=== PATIENT | male | born 1990 | race Caucasian/White ===

== ENCOUNTER 2023-08-01 23:10 | Emergency (ER) | payer OTHER, SELFPAY ==
[2023-08-01 23:16] VITALS: BP 122/66; PULSE 80; RESP 20; TEMP 36.8; O2SAT 99; BMI 18.8
--- NOTE | 2023-08-01 23:29 | ED.GENADULT ---
HPI - General Adult General Date Seen: 08/01/23 Chief complaint: Abdominal Pain Stated complaint: bloating, shortness of breath Time Seen by Provider: 08/01/23 23:28 History of Present Illness HPI narrative: This is a 32-year-old male with a history of liver transplant (done at age 7. He follows with the [facility] transplant [facility] for his ongoing care. His regular doctor is Dr. Milligan at the [facility]. He normally takes Prograf for rejection control. No other regular medications. When asked how his liver is doing he indicates that they have been watching his labs for the past year or 2. He does not recall any previous history of ascites or known recollection of spontaneous bacterial peritonitis. He is here in the ER in [facility] because he is visiting his girlfriend who lives here in [facility]. He has been having symptoms for about 5 days of gradually worsening abdominal bloating and distention. It has gotten to the point [facility] where he feels little bit short of breath because he can not keep but deep breath in. No other symptoms. No chest pain. No cough. No fever. No vomiting or diarrhea. He has not had any swelling in his legs. He has not yet been in contact with his liver specialist about the swelling in his abdomen. Related Data Home Medications Medication Instructions Recorded Confirmed tacrolimus 1 mg capsule, 2 mg PO Q12H 08/01/23 08/01/23 immediate-release (Prograf) Allergies Allergy/AdvReac Type Severity Reaction Status Date / Time No Known Drug Allergies Allergy Verified 08/01/23 23:16 [facility] Surgical History (Updated 08/01/23 @ 23:19 by Latricia Chavez RN) Liver transplant recipient ?Z94.4 - Liver transplant status (ICD-10) Social History Do you use any of these nicotine containing products: Vaping Products How often do you have a drink containing alcohol: never AUDIT-C Alcohol total score: 0 Non-prescribed substance use: marijuana (any form) service: No Exam Narrative: Exam Narrative: Constitutional: Appears well-developed and well-nourished. He is very slender arms and legs. Skin looks perhaps a bit jaundiced or anemic. Alert. Conversant. No confusion. Non toxic. HENT: Head: Atraumatic. Nose: Nose normal. Mouth/Throat: Oral mucosa is clear and moist. no trismus. Pharynx normal. Tonsils symmetric. No tonsillar enlargement, erythema, or exudate. Eyes: Conjunctivae normal. EOM normal. Pupils equal, round, and reactive to light. No scleral icterus. Neck: Normal range of motion. Neck supple. No tracheal deviation present. No JVD. Cardiovascular: Normal rate, regular rhythm. No gallop. No friction rub. No murmur heard. Symmetric radial artery pulses Pulmonary/Chest: Effort normal. No stridor. No respiratory distress. No wheezes. No rales. No rhonchi . No tenderness. Abdominal: Soft. Bowel sounds normal. Abdomen is diffusely firm, mildly tender. No guarding or rebound or definite peritoneal signs. Because of firmness in the upper abdomen, unable to really palpate for hepatomegaly or splenomegaly. He has 2 healed linear right upper quadrant incisions as well as multiple other healed abdominal incisions. No umbilical hernia. Dull to percussion. However no definite fluid wave. No CVA tenderness. Musculoskeletal: RUE: Normal range of motion. No tenderness. No deformity LUE: Normal range of motion. No tenderness. No deformity RLE: Normal range of motion. No edema. No tenderness. No deformity LLE: Normal range of motion. No edema. No tenderness. No deformity Neurological: Alert and oriented to person, place, and time. Normal strength. CN II-VII intact. No sensory deficit. GCS eye subscore is 4. GCS verbal subscore is 5. GCS motor subscore is 6. Normal coordination Skin: Skin is warm and dry. No rash noted. No pallor. Normal capillary refill. Psychiatric: Normal mood. Normal affect. Const: Vital Signs, click to edit/add: Vital Signs - 24 hr 08/01/23 23:16 Temperature 98.3 F Pulse Rate [Pulse Oximeter] 80 Respiratory Rate 20 Blood Pressure [Ri t Upper Arm] 122/66 Pulse Oximetry 99 Oxygen Delivery Me thod Room Air Course Vital Signs Vital signs: Initial Vital Signs Temperature 98.3 F 08/01/23 23:16 Temperature Source Temporal Artery Scan 08/01/23 23:16 Pulse Rate 80 08/01/23 23:16 Respiratory Rate 20 08/01/23 23:16 Blood Pressure 122/66 08/01/23 23:16 Blood Pressure Mean 84 08/01/23 23:16 Pulse Oximetry 99 08/01/23 23:16 Oxygen Delivery Method Room Air 08/01/23 23:16 Vital Signs Temperature 98.3 F 08/01/23 23:16 Pulse Rate 80 08/01/23 23:16 Respiratory Rate 20 08/01/23 23:16 Blood Pressure 122/66 08/01/23 23:16 Pulse Oximetry 99 08/01/23 23:16 Oxygen Delivery Method Room Air 08/01/23 23:16 Temperature 98.3 F 08/01/23 23:16 Pulse Rate 80 08/01/23 23:16 Respiratory Rate 20 08/01/23 23:16 Blood Pressure 122/66 08/01/23 23:16 Pulse Oximetry 99 08/01/23 23:16 Oxygen Delivery Method Room Air 08/01/23 23:16 Medical Decision Making MDM Narrative Medical decision making narrative: 32-year-old male with a long history of liver transplant (done at age 7, 25 years ago) presenting to the ER today with tonight for evaluation of 5 days of progressively worsening abdominal bloating and pain. My initial exam is concerning for possible ascites. However there is no definitive fluid wave. I have ordered CT imaging to evaluate for ascites as well as for other causes of abdominal pain such as appendicitis, colitis, diverticulitis, among others. I have also ordered laboratory workup to look at kidney function, LFTs, coags, and blood counts. Patient signed out to my partner, Dr. Crook at shift change-12:30 a.m. on 08/02/2023 Clinical impression: Abdominal pain, possible ascites Lab Data Labs: Lab Results 08/01/23 Range/Units 23:50 WBC 6.74 (4.50-11.00) K/uL RBC 3.79 L (4.30-5.90) m/uL Hgb 12.2 L (13.5-17.5) gm/dL Hct 37.4 (37.0-53.0) % MCV 99 (80-100) fL MCH 32 (26-34) pg MCHC 33 (32-36) gm/dL RDW Coeff of Karthik 17.8 H (11.5-15.5) % Plt Count 204 (140-440) K/uL Neut % (Auto) 74.0 H (42.0-72.0) % Lymph % (Auto) 9.5 L (20-44) % [place] % (Auto) 10.5 (0.0-11.0) % Eos % (Auto) 4.9 (0.0-7.0) % Baso % (Auto) 0.7 (0.0-3.0) % Neut # (Auto) 5.00 (1.7-7.0) K/uL Lymph # (Auto) 0.60 L (0.90-2.90) K/uL [place] # (Auto) 0.70 (0.00-0.90) K/UL Eos # (Auto) 0.33 (0.00-0.50) K/uL Baso # (Auto) 0.05 (0.00-0.30) K/uL Abs Immat Gran (auto) 0.03 (0.00-0.30) K/uL Imm/Tot Granulo (auto) 0.4 % Discharge Plan Discharge Prescriptions: No Action tacrolimus [Prograf] 1 mg capsule 2 mg PO Q12H Follow Up/Referrals: Provider,Not a Local [Primary Care Provider] -
--- NOTE | 2023-08-01 23:46 | CRLHL7_ITS ---
For Patients: As a result of the Century Cures Act, medical imaging exams and procedure reports are released immediately into your electronic medical record. You may view this report before your referring provider. If you have questions, please contact your health care provider. INDICATION: Abdominal bloating. Shortness of breath. History of liver transplant. CT ABDOMEN AND PELVIS WITH CONTRAST TECHNIQUE: Multidetector CT imaging was performed through the abdomen and pelvis following intravenous contrast administration using 66 mL Isovue 370. Coronal and sagittal reconstructions were generated. COMPARISON: None. FINDINGS: Lower chest: Mild basilar lung atelectasis, greatest on the right. Liver and bile ducts: Surgical clips along the superior aspect of the intrahepatic IVC may reflect anastomosis from prior liver transplantation. The gallbladder is absent and there is mild intrahepatic pneumobilia which may relate to prior choledochoejunostomy. No significant biliary dilation. Diffusely nodular liver contour consistent with cirrhosis. No focal liver mass identified. Pancreas: Unremarkable. Spleen: Mild splenomegaly measuring 16.4 centimeters in length. Adrenals: No nodules or masses. Kidneys, ureters, and urinary bladder: Small cyst at the upper pole of the right kidney. No right hydronephrosis. Moderate to severe atrophy of the left kidney. No bladder mass or definite wall thickening. Gastrointestinal tract: Diffuse mild bowel wall thickening. No evidence of bowel obstruction. The appendix is not clearly identified. Vascular structures: Normal caliber abdominal aorta. Patent portal vein. Prominent vessels in left upper quadrant likely representing portosystemic collaterals related to portal venous hypertension. Peritoneum: Moderate to large amount of ascites throughout the abdomen and pelvis. No definite loculated collections. No free air identified. Lymph nodes: No pathologically enlarged nodes identified. Reproductive organs: No pelvic masses. Bones: Degenerative disc disease at L5-S1. IMPRESSION: 1. Findings consistent with previous liver transplantation. The transplanted liver shows evidence of cirrhosis with associated splenomegaly and a moderate to large amount of ascites throughout the abdomen and pelvis. 2. Nonspecific diffuse mild bowel wall thickening, possibly related to hypoalbuminemia. AMRIT REECE MD [facility] Dictated by Dewayne Reece MD @ 08/02/2023 1:12:13 AM Please note that all CT scans at this facility use dose modulation, iterative reconstruction, and/or weight-based dosing when appropriate to reduce radiation dose to as low as reasonably achievable. Dictated by: Dewayne Reece MD @ 08/02/2023 01:12:37 (Electronically Signed)
[2023-08-02 00:05] LABS: Basophils Absolute Auto 0.05 K/uL (0.00-0.30); Basophils Percent Auto 0.7 % (0.0-3.0); Eosinophils Absolute Auto 0.33 K/uL (0.00-0.50); Eosinophils Percent Auto 4.9 % (0.0-7.0); Hematocrit 37.4 % (37.0-53.0); Hemoglobin* 12.2 gm/dL (13.5-17.5); Immature Granulocytes Abs Auto 0.03 K/uL (0.00-0.30); Immature Granulocytes Pct Auto 0.4 %; Lymphocytes Percent Auto 9.5 % (20-44); Mean Corpuscular HGB Conc 33 gm/dL (32-36); Mean Corpuscular Hemoglobin 32 pg (26-34); Mean Corpuscular Volume 99 fL (80-100); Monocytes Percent Auto 10.5 % (0.0-11.0); Platelet Count* 204 K/uL (140-440); RDW Coefficient of Variation % 17.8 % (11.5-15.5); Red Blood Count 3.79 m/uL (4.30-5.90); White Blood Count* 6.74 K/uL (4.50-11.00)
[2023-08-02 00:07] LABS: Slide Review Reflex No
[2023-08-02 00:17] LABS: Albumin* 2.4 g/dL (3.3-5.0); Chloride* 112 mmol/L (96-114)
[2023-08-02 00:18] LABS: Potassium* 4.3 mmol/L (3.6-5.1); Sodium* 138 mmol/L (135-149)
[2023-08-02 00:19] LABS: INR 1.06 (0.91-1.10); Prothrombin Time 14.4 Seconds
[2023-08-02 00:20] LABS: Alkaline Phosphatase* 646 U/L (40-150); Anion Gap 6 mEq/L (7-15); Aspartate Amino Transferase* 279 U/L (12-35); Bilirubin Total* 10.5 mg/dL (0.1-1.5); Carbon Dioxide* 20 mmol/L (20-32); Creatinine* 1.3 mg/dL (0.5-1.5); Est. Creatinine Clearance* 69.35; Estimated Glomerular Filt Rate 74 ml/min; Total Protein* 5.3 g/dL (6.0-8.3)
[2023-08-02 00:21] LABS: Alanine Aminotransferase* 251 U/L (4-50); Blood Urea Nitrogen* 34 mg/dL (5-24); Glucose* 108 mg/dL (60-115); Lipase* 178 U/L (23-300)
[2023-08-02 00:37] LABS: C Reactive Protein* 0.7 mg/dL (0.5-1.0)
[2023-08-02] MEDS: KETOROLAC 30 MG/ML inj IVP (00:53)
== END 2023-08-02 01:55 | disposition home or self-care (01) ==
PROVIDERS: Emergency Provider Emergency Medicine
DX: R18.8 Other ascites (principal); K74.60 Unspecified cirrhosis of liver
CPT/HCPCS: 36415; 74177; 80053; 83690; 85025; 85610; 86140; 96374; 99283; 99284; 99285; J1885; Q9967

== ENCOUNTER 2023-11-25 14:02 | Emergency (ER) | payer MEDICARE, SELFPAY ==
[2023-11-25 14:06] VITALS: BP 131/71; PULSE 94; RESP 24; TEMP 36.7; O2SAT 99; BMI 23.7
[2023-11-25 14:53] LABS: Basophils Absolute Auto 0.09 K/uL (0.00-0.30); Basophils Percent Auto 0.9 % (0.0-3.0); Eosinophils Absolute Auto 0.23 K/uL (0.00-0.50); Eosinophils Percent Auto 2.3 % (0.0-7.0); Hematocrit 32.1 % (37.0-53.0); Hemoglobin* 10.4 gm/dL (13.5-17.5); Immature Granulocytes Abs Auto 0.17 K/uL (0.00-0.30); Immature Granulocytes Pct Auto 1.7 %; Lymphocytes Percent Auto 4.5 % (20-44); Mean Corpuscular HGB Conc 32 gm/dL (32-36); Mean Corpuscular Hemoglobin 32 pg (26-34); Mean Corpuscular Volume 98 fL (80-100); Monocytes Percent Auto 8.7 % (0.0-11.0); Neutrophils Percent Auto 81.9 % (42.0-72.0); Platelet Count* 223 K/uL (140-440); RDW Coefficient of Variation % 20.1 % (11.5-15.5); Red Blood Count 3.28 m/uL (4.30-5.90); White Blood Count* 10.18 K/uL (4.50-11.00)
[2023-11-25 14:54] LABS: Slide Review Reflex No
[2023-11-25 15:06] LABS: Chloride* 115 mmol/L (96-114); Sodium* 139 mmol/L (135-149)
[2023-11-25 15:07] LABS: Albumin* 2.5 g/dL (3.3-5.0)
[2023-11-25 15:08] LABS: INR 1.04 (0.91-1.10); Prothrombin Time 14.2 Seconds
[2023-11-25 15:09] LABS: Anion Gap 8 mEq/L (7-15); Blood Urea Nitrogen* 37 mg/dL (5-24); Carbon Dioxide* 16 mmol/L (20-32); Creatinine* 1.3 mg/dL (0.5-1.5); Est. Creatinine Clearance* 84.47; Estimated Glomerular Filt Rate 73 ml/min; Glucose* 145 mg/dL (60-115)
[2023-11-25 15:10] LABS: Aspartate Amino Transferase* 167 U/L (12-35); Bilirubin Direct* 11.9 mg/dL (0.0-0.5); Bilirubin Total* 13.2 mg/dL (0.1-1.5); Calcium* 7.8 mg/dL (8.4-10.6)
[2023-11-25 15:11] LABS: Alanine Aminotransferase* 111 U/L (4-50); Alkaline Phosphatase* 719 U/L (40-150); Potassium* 2.9 mmol/L (3.6-5.1)
[2023-11-25 15:14] LABS: C Reactive Protein* 1.2 mg/dL (0.5-1.0)
--- NOTE | 2023-11-25 15:24 | ED.GENADULT ---
HPI - General Adult General Chief complaint: Abdominal Pain Stated complaint: Requesting paracentesis Time Seen by Provider: 11/25/23 14:10 Source: patient, RN notes reviewed and old records reviewed Mode of arrival: ambulatory Limitations: no limitations History of Present Illness HPI narrative: Patient is a 33-year-old male who is status post liver transplant at age 7, followed by [facility]. More recently, he has had some worsening liver function, beginning in July. He says he has been requiring a paracentesis once a week, which he has been getting at the [facility]. He says that he is now going to be getting those here at our clinic, he is under the impression that he has an order with radiology to come in and get a paracentesis whenever he needs one. He has had increasing abdominal girth, early satiety, and shortness of breath worsening to the point that he fell today he needed a paracentesis, he says that he was told clinic was closed and he should come to the ER. He has little bit of pain in the right side of his abdomen which he says is typical for him when he gets this distended. He has not had any vomiting or diarrhea, he has not had fevers. He has nystagmus which he says is chronic. He denies any other new symptoms. He vapes tobacco occasionally, denies any drug or alcohol use. No other abdominal surgeries aside from liver transplant. Medications reviewed. Related Data Home Medications ?Medication ?Instructions ?Recorded ?Confirmed tacrolimus 1 mg capsule, 2 mg PO Q12H 08/01/23 11/25/23 immediate-release (Prograf) insulin NPH isoph U-100 human 100 unit subcut 11/25/23 unit/mL (3 mL) subcutaneous pen (Novolin N FlexPen) insulin aspart U-100 100 unit/mL subcut 11/25/23 (3 mL) subcutaneous pen lactulose 10 gram/15 mL oral ml PO 11/25/23 solution mycophenolate mofetil 250 mg 500 mg PO BID 11/25/23 11/25/23 capsule prednisone 20 mg tablet 40 mg PO DAILY 11/25/23 11/25/23 rifaximin 550 mg tablet (Xifaxan) 550 mg PO BID 11/25/23 11/25/23 sodium bicarbonate 650 mg tablet 1,300 mg PO BID 11/25/23 11/25/23 Previous Rx's ?Medication ?Instructions ?Recorded potassium chloride 20 mEq 40 meq (2 x 20 mEq) PO DAILY #14 11/25/23 tablet,extended release tabs Allergies Allergy/AdvReac Type Severity Reaction Status Date / Time No Known Drug Allergies Allergy Verified 08/01/23 23:16 Review of Systems Status of ROS: Reports: 10 or more systems reviewed and unremarkable except as noted in History and [facility] recipient ?Z94.4 - Liver transplant status (ICD-10) Social History Do you use any of these nicotine containing products: Vaping Products How often do you have a drink containing alcohol: never AUDIT-C Alcohol total score: 0 Non-prescribed substance use: marijuana (any form) service: No Exam Narrative: Exam Narrative: Vital signs as noted above. In general, an alert, chronically ill-appearing male. Head: Normocephalic, atraumatic. Eyes: Pupils are equal reactive. He has horizontal nystagmus at rest. Scleral icterus. ENT: Mucous membranes are slightly dry. Neck: Supple without lymphadenopathy. Heart: Regular rate and rhythm. No murmur or rub. Lungs: Clear bilaterally. No increased work of breathing, crackles or wheezes. Abdomen: Abdomen is distended, consistent with ascites. No significant tenderness to palpation. No rebound guarding or rigidity. Extremities: Pulses intact. Mild edema noted in bilateral lower extremities. No calf tenderness. Neurologic: Patient is alert and oriented to person and place. Speech is fluent. Face is symmetric. Moves all extremities equally. Affect: Flat. Skin: Warm and dry. Well perfused. Jaundice. Const: Vital Signs, click to edit/add: Vital Signs - 24 hr 11/25/23 14:06 Temperature 98.1 F Pulse Rate [Pulse Oximeter] 94 Respiratory Rate 24 Blood Pressure [Ri ght Upper Arm] 131/71 Pulse Oximetry 99 Oxygen Delivery Me thod Room Air Documenting provider has reviewed patient's vital signs: yes Course Course ED Course: We checked labs here today, I compared these with his labs on his [facility] chart from November 21. Overall, he looks stable to improved, white count is normal at 10, hemoglobin is 10.4 which is his baseline. He has chronically elevated AST and ALT, his alk phos is down from a 1000-719. CRP is essentially normal at 1.2. Albumin is chronically low. BUN is 37 but creatinine is baseline at 1.3. His CO2 is 16, he is chronically mildly acidotic, potassium today is low at 2.9 which is little unusual for him. Will go ahead and start him on replacement. His ammonia level is improved from 65-32. He does not at all seem encephalopathic. His O2 sats are normal, lungs are clear, abdominal exam is benign aside from ascites. I talked with Dr. Robledo, on-call for surgery. She will help to arrange for outpatient paracentesis tomorrow or the next day. Patient is comfortable with that plan. He can certainly return if things are getting worse or he has new symptoms such as severe pain or fever. Vital Signs Vital signs: Initial Vital Signs Temperature 98.1 F 11/25/23 14:06 Temperature Source Temporal Artery Scan 11/25/23 14:06 Pulse Rate 94 11/25/23 14:06 Respiratory Rate 11/25/23 14:06 Blood Pressure 131/71 11/25/23 14:06 Blood Pressure Mean 91 11/25/23 14:06 Blood Pressure Position Sitting 11/25/23 14:06 Pulse Oximetry 99 11/25/23 14:06 Oxygen Delivery Method Room Air 11/25/23 14:06 Vital Signs Temperature 98.1 F 11/25/23 14:06 Pulse Rate 94 11/25/23 14:06 Respiratory Rate 24 11/25/23 14:06 Blood Pressure 131/71 11/25/23 14:06 Pulse Oximetry 99 11/25/23 14:06 Oxygen Delivery Method Room Air 11/25/23 14:06 Temperature 98.1 F 11/25/23 14:06 Pulse Rate 94 11/25/23 14:06 Respiratory Rate 24 11/25/23 14:06 Blood Pressure 131/71 11/25/23 14:06 Pulse Oximetry 99 11/25/23 14:06 Oxygen Delivery Method Room Air 11/25/23 14:06 Medications Administered Medications: Discontinued Medications Generic Name Dose Route Start Last Admin Trade Name Freq PRN Reason Stop Dose Admin Potassium Chloride 40 meq 11/25/23 16:12 11/25/23 16:23 Potassium Chloride 10 Meq Capsule Er PO 11/25/23 16:13 40 meq ONCE ONE Administration Medical Decision Making Lab Data Labs: Lab Results 11/25/23 Range/Units 14:45 WBC 10.18 (4.50-11.00) K/uL RBC 3.28 L (4.30-5.90) m/uL Hgb 10.4 L (13.5-17.5) gm/dL Hct 32.1 L (37.0-53.0) % MCV 98 (80-100) fL MCH 32 (26-34) pg MCHC 32 (32-36) gm/dL RDW Coeff of Karthik 20.1 H (11.5-15.5) % Plt Count 223 (140-440) K/uL Neut % (Auto) 81.9 H (42.0-72.0) % Lymph % (Auto) 4.5 L (20-44) % [place] % (Auto) 8.7 (0.0-11.0) % Eos % (Auto) 2.3 (0.0-7.0) % Baso % (Auto) 0.9 (0.0-3.0) % Neut # (Auto) 8.30 H (1.7-7.0) K/uL Lymph # (Auto) 0.50 L (0.90-2.90) K/uL [place] # (Auto) 0.90 (0.00-0.90) K/UL Eos # (Auto) 0.23 (0.00-0.50) K/uL Baso # (Auto) 0.09 (0.00-0.30) K/uL Abs Immat Gran (auto) 0.17 (0.00-0.30) K/uL Imm/Tot Granulo (auto) 1.7 % INR 1.04 (0.91-1.10) Sodium 139 (135-149) mmol/L Potassium 2.9 L* (3.6-5.1) mmol/L Chloride 115 H (96-114) mmol/L Carbon Dioxide 16 L (20-32) mmol/L Anion Gap 8 (7-15) mEq/L BUN 37 H (5-24) mg/dL Creatinine 1.3 (0.5-1.5) mg/dL Estimated Creat Clear 84.47 Estimated GFR 73 ml/min Glucose 145 H (60-115) mg/dL Calcium 7.8 L (8.4-10.6) mg/dL Total Bilirubin 13.2 H (0.1-1.5) mg/dL Direct Bilirubin 11.9 H (0.0-0.5) mg/dL AST 167 H (12-35) U/L ALT 111 H (4-50) U/L Alkaline Phosphatase 719 H (40-150) U/L Ammonia 32.0 H (13.1-30.0) umol/L C-Reactive Protein 1.2 H (0.5-1.0) mg/dL Total Protein 5.0 L (6.0-8.3) g/dL Albumin 2.5 L (3.3-5.0) g/dL Discharge Plan Discharge Clinical Impression: Ascites, Hypokalemia Patient Disposition: Home, Self-Care Condition: Stable Instructions: Hypokalemia (ED), Ascites (ED) Additional Instructions: I would recommend potassium replacement for the next week or so, please have this rechecked with your next lab draw. You should receive a phone call from the surgery clinic tomorrow to help you schedule a paracentesis as an outpatient. Return for worsening symptoms such as significant difficulty breathing, abdominal pain, fever, or other new symptoms. Prescriptions: New potassium chloride 20 mEq tablet extended release 40 meq PO DAILY Qty: 14 2RF No Action tacrolimus [Prograf] 1 mg capsule 2 mg PO Q12H mycophenolate mofetil 250 mg capsule 500 mg PO BID prednisone 20 mg tablet 40 mg PO DAILY sodium bicarbonate 650 mg tablet 1,300 mg PO BID Novolin N FlexPen 100 unit/mL (3 mL) insulin pen subcut insulin aspart U-100 100 unit/mL (3 mL) insulin pen subcut lactulose 10 gram/15 mL solution PO Xifaxan 550 mg tablet 550 mg PO BID Follow Up/Referrals: Provider,Not a Local [Primary Care Provider] - Stand Alone Forms: MyHealth Info Instructions
[2023-11-25] MEDS: POTASSIUM CHLORIDE 10 MEQ CAPSULE ER 40 MEQ PO (16:23)
== END 2023-11-25 16:23 | disposition home or self-care (01) ==
PROVIDERS: Emergency Provider Emergency Medicine
DX: R18.8 Other ascites (principal); E87.6 Hypokalemia
CPT/HCPCS: 36415; 80048; 80076; 82140; 85025; 85610; 86140; 99284; A9270